=== PATIENT | male | born 1975 | race American Indian/Alaskan Native ===

== ENCOUNTER 2019-03-27 06:22 | Emergency (ER) | payer BC, OTHER ==
[2019-03-27 06:27] VITALS: BP 148/99
[2019-03-27] MEDS ORDERED: LIDOCAINE-MPF (1%) 10 MG/1 ML VIAL 5 ML INFILTRATI ONE (07:26)
--- NOTE | 2019-03-27 07:52 | Emergency Department Report ---
- General Chief complaint: Skin/Abscess/Foreign Body Stated complaint: HAIR BUMP UNDER CHIN/PAIN SWOLLEN Time Seen by Provider: 03/27/19 07:06 Source: patient Mode of arrival: Ambulatory Limitations: No Limitations - History of Present Illness Initial comments: Patient is a 43-year-old male who presents emergency room with complaints of an abscess under the chin that began two weeks ago. pt states it first started as a small ingrown hair that scabbed over but then began to increase in size. he states some days he has seen a small amount of pus drainage. States he does shave his perera. Denies any fever, chills, nausea, vomiting, any other symptoms. pt states he has a past medical history of hypertension. Denies any history of diabetes. Denies any allergies to medications. - Related Data Previous Rx's Medication Instructions Recorded Last Taken Type Amoxicillin [Trimox CAP] 500 mg PO Q8H #30 capsule 02/24/15 Unknown Rx HYDROcodone/APAP 10-325 [[place] 1 each PO Q6HR PRN #12 tablet 02/24/15 Unknown Rx 10/325] Acetaminophen/Codeine [Tylenol 1 tab PO Q6H PRN #5 tab 03/27/19 Unknown Rx /Codeine # 3 tab] Ibuprofen [Motrin 600 MG tab] 600 mg PO Q8H PRN #10 tablet 03/27/19 Unknown Rx Sulfamethoxazole/Trimethoprim 1 each PO BID 7 Days #14 tablet 03/27/19 Unknown Rx [Bactrim DS TAB] Allergies Allergy/AdvReac Type Severity Reaction Status Date / Time squash Allergy Vomiting Verified 02/24/15 04:31 Abscess Boil HPI - HPI Chief Complaint: Skin/Abscess/Foreign Body Stated Complaint: HAIR BUMP UNDER CHIN/PAIN SWOLLEN Time Seen by Provider: 03/27/19 07:06 Home Medications: Previous Rx's Medication Instructions Recorded Last Taken Type Amoxicillin [Trimox CAP] 500 mg PO Q8H #30 capsule 02/24/15 Unknown Rx HYDROcodone/APAP 10-325 [[place] 1 each PO Q6HR PRN #12 tablet 02/24/15 Unknown Rx 10/325] Acetaminophen/Codeine [Tylenol 1 tab PO Q6H PRN #5 tab 03/27/19 Unknown Rx /Codeine # 3 tab] Ibuprofen [Motrin 600 MG tab] 600 mg PO Q8H PRN #10 tablet 03/27/19 Unknown Rx Sulfamethoxazole/Trimethoprim 1 each PO BID 7 Days #14 tablet 03/27/19 Unknown Rx [Bactrim DS TAB] Allergies/Adverse Reactions: Allergies Allergy/AdvReac Type Severity Reaction Status Date / Time squash Allergy Vomiting Verified 02/24/15 04:31 ED Review of Systems ROS: Stated complaint: HAIR BUMP UNDER CHIN/PAIN SWOLLEN Other details as noted in HPI Comment: All other systems reviewed and negative ED Past Medical Hx - Past Medical History Hx Hypertension: Yes - Surgical History Past Surgical History?: No - Social History Smoking Status: Current Every Day Smoker Substance Use Type: Alcohol - Medications Home Medications: Home Medications Medication Instructions Recorded Confirmed Last Taken Type Amoxicillin [Trimox CAP] 500 mg PO Q8H #30 capsule 02/24/15 Unknown Rx HYDROcodone/APAP 10-325 [[place] 1 each PO Q6HR PRN #12 tablet 02/24/15 Unknown Rx 10/325] Acetaminophen/Codeine [Tylenol 1 tab PO Q6H PRN #5 tab 03/27/19 Unknown Rx /Codeine # 3 tab] Ibuprofen [Motrin 600 MG tab] 600 mg PO Q8H PRN #10 tablet 03/27/19 Unknown Rx Sulfamethoxazole/Trimethoprim 1 each PO BID 7 Days #14 tablet 03/27/19 Unknown Rx [Bactrim DS TAB] ED Physical Exam - General Limitations: No Limitations General appearance: alert, in no apparent distress - Head Head exam: Present: atraumatic, normocephalic - Eye Eye exam: Present: normal appearance - ENT ENT exam: Present: mucous membranes moist - Respiratory Respiratory exam: Present: normal lung sounds bilaterally. Absent: respiratory distress, wheezes, rales, rhonchi, stridor, chest wall tenderness, accessory muscle use, decreased breath sounds, prolonged expiratory - Cardiovascular Cardiovascular Exam: Present: regular rate, normal rhythm, normal heart sounds. Absent: systolic murmur, diastolic murmur, rubs, gallop - Neurological Exam Neurological exam: Present: alert, oriented X3 - Psychiatric Psychiatric exam: Present: normal affect, normal mood - Skin Skin exam: Present: warm, dry, other (4 cm area of induration just inferior to the chin, 1 cm area of central fluctuance with scab present) ED Course Vital Signs 03/27/19 06:25 Temperature 98.4 F Pulse Rate 87 Respiratory 18 Rate Blood Pressure 148/99 O2 Sat by Pulse 99 Oximetry - I & D Anterior Neck Type of Procedure: Simple Site: just inferior to the chin Blade Size: 11 I & D Procedure: betadine prep, sterile drapes applied, sterile dressing applied Progress: 4 cm area of induration just inferior to the chin, 1 cm area of central fluctuance with scab present on exam, betadine used for skin prep, sterile chrissie pes applied, 2 cc of 1% lidocaine without epi used as anesthetic, 1 cm incision made with 11 blade, small amount of purulent drainage expressed, probed with blunt hemostat, irrigated with saline, pt tolerated well, no complications, bleeding controlled, sterile dressing applied ED Medical Decision Making - Medical Decision Making Patient is a 43-year-old male who presents emergency room with complaints of an abscess under the chin that began two weeks ago. pt states it first started as a small ingrown hair that scabbed over but then began to increase in size. he states some days he has seen a small amount of pus drainage. States he does shave his perera. Denies any fever, chills, nausea, vomiting, any other symptoms. pt states he has a past medical history of hypertension. Denies any history of diabetes. Denies any allergies to medications. VSS. on exam: 4 cm area of induration just inferior to the chin, 1 cm area of central fluctuance with scab present. I&D performed per procedure note with small amount of purulent drainage. pt given prescription for bactrim and pain medication. advised pt to please keep area clean, dry, covered. May wash with soap and water and immediately dry. No hot tub, pool, soaking in water. Please take medication as prescribed. Do not drive or operate heavy machinery while taking pain medication. please follow-up with your primary care doctor in the next 3 days for reexamination. Return to the emergency room for any new or worsening symptoms or any worsening signs of infection despite antibiotic therapy including worsening swelling, worsening redness, fever, chills, increased drainage. - Differential Diagnosis abscess, folliculitis, cellulitis, carbuncle, furuncle Critical care attestation.: If time is entered above; I have spent that time in minutes in the direct care of this critically ill patient, excluding procedure time. ED Disposition Clinical Impression: Abscess, Encounter for incision and drainage procedure Disposition: DC-01 TO HOME OR SELFCARE Is pt being admited?: No Does the pt Need Aspirin: No Condition: Stable Instructions: Abscess Incision and Drainage (ED) Additional Instructions: Please keep area clean, dry, covered. May wash with soap and water and immediately dry. No hot tub, pool, soaking in water. Please take medication as prescribed. Do not drive or operate heavy machinery while taking pain medication. please follow-up with your primary care doctor in the next 3 days for reexamination. Return to the emergency room for any new or worsening symptoms or any worsening signs of infection despite antibiotic therapy including worsening swelling, worsening redness, fever, chills, increased dr garcia. Prescriptions: Sulfamethoxazole/Trimethoprim [Bactrim DS TAB] 1 each PO BID 7 Days #14 tablet Ibuprofen [Motrin 600 MG tab] 600 mg PO Q8H PRN #10 tablet PRN Reason: Pain, Moderate (4-6) Acetaminophen/Codeine [Tylenol /Codeine # 3 tab] 1 tab PO Q6H PRN #5 tab PRN Reason: Pain , Severe (7-10) Referrals: ROBERT GODFREY MD [Primary Care Provider] - 3-5 Days Time of Disposition: 07:53 Print Language: PASHTO
== END 2019-03-27 08:18 | disposition home or self-care (01) ==
LOC: ED 06:22
DX: L02.01 Cutaneous abscess of face (principal)
CPT/HCPCS: 99281

== ENCOUNTER 2020-09-01 05:22 | Emergency (ER) | payer OTHER ==
[2020-09-01 06:08] VITALS: BP 147/100
--- NOTE | 2020-09-01 07:42 | Emergency Department Report ---
ED Eye Problem HPI - General Chief complaint: Eye Problems Stated complaint: LT EYE PAIN Time Seen by Provider: 09/01/20 07:27 Source: patient Mode of arrival: Ambulatory Limitations: No Limitations - History of Present Illness Initial comments: Patient is a 45-year-old -[place] male that comes to the emergency room after waking up with his eye matted shut and conjunctival redness. It is his left eye. His right eye is normal. He is around no children. He denies any trauma. He denies getting anything in his eyes. His vision is normal. His EOMs are intact. He is playing on his phone as provider enters room. There is no discharge on exam the eye is not tearing. There is mild conjunctival redness. Globe is intact Patient's blood pressure was noted to be mildly elevated in triage. Patient does have a history of hypertension. He denies any chest pain shortness of breath headache or other complaints. MD chief complaint: eye redness -: Sudden, hour(s) Onset Description: sudden Location: left eye Place: home If Injury: none Eye Symptoms: redness, discharge Severity: mild Consistency: intermittent Associated Symptoms: none Treatments Prior to Arrival: none - Related Data Patient Tetanus UTD: Yes Previous Rx's Medication Instructions Recorded Last Taken Type Amoxicillin [Trimox CAP] 500 mg PO Q8H #30 capsule 02/24/15 Unknown Rx HYDROcodone/APAP 10-325 [[place] 1 each PO Q6HR PRN #12 tablet 02/24/15 Unknown Rx 10/325] Acetaminophen/Codeine [Tylenol 1 tab PO Q6H PRN #5 tab 03/27/19 Unknown Rx /Codeine # 3 tab] Ibuprofen [Motrin 600 MG tab] 600 mg PO Q8H PRN #10 tablet 03/27/19 Unknown Rx Sulfamethoxazole/Trimethoprim 1 each PO BID 7 Days #14 tablet 03/27/19 Unknown Rx [Bactrim DS TAB] Polymyxin B Sulf/Trimethoprim 2 drop OS Q4H #1 bottle 09/01/20 Unknown Rx [Polytrim Eye Drops] Allergies Allergy/AdvReac Type Severity Reaction Status Date / Time squash Allergy Vomiting Verified 02/24/15 04:31 ED Review of Systems ROS: Stated complaint: LT EYE PAIN Other details as noted in HPI Comment: All other systems reviewed and negative ED Past Medical Hx - Past Medical History Previous Medical History?: Yes Hx Hypertension: Yes Additional medical history: "heart probs". - Surgical History Past Surgical History?: No - Family History Family history: no significant - Social History Smoking Status: Current Every Day Smoker Substance Use Type: Alcohol - Medications Home Medications: Home Medications Medication Instructions Recorded Confirmed Last Taken Type Amoxicillin [Trimox CAP] 500 mg PO Q8H #30 capsule 02/24/15 Unknown Rx HYDROcodone/APAP 10-325 [[place] 1 each PO Q6HR PRN #12 tablet 02/24/15 Unknown Rx 10/325] Acetaminophen/Codeine [Tylenol 1 tab PO Q6H PRN #5 tab 03/27/19 Unknown Rx /Codeine # 3 tab] Ibuprofen [Motrin 600 MG tab] 600 mg PO Q8H PRN #10 tablet 03/27/19 Unknown Rx Sulfamethoxazole/Trimethoprim 1 each PO BID 7 Days #14 tablet 03/27/19 Unknown Rx [Bactrim DS TAB] Polymyxin B Sulf/Trimethoprim 2 drop OS Q4H #1 bottle 09/01/20 Unknown Rx [Polytrim Eye Drops] ED Physical Exam - General Limitations: No Limitations General appearance: alert, in no apparent distress - Head Head exam: Present: atraumatic, normocephalic - Eye Eye exam: Present: normal appearance, PERRL, EOMI, other (Conjunctival redness of the left eye). Absent: scleral icterus, conjunctival injection, nystagmus, periorbital swelling, periorbital tenderness - ENT ENT exam: Present: mucous membranes moist - Neck Neck exam: Present: normal inspection - Respiratory Respiratory exam: Present: normal lung sounds bilaterally. Absent: respiratory distress - Cardiovascular Cardiovascular Exam: Present: regular rate, normal rhythm. Absent: systolic murmur, diastolic murmur, rubs, gallop - GI/Abdominal GI/Abdominal exam: Present: soft, normal bowel sounds - Rectal Rectal exam: Present: deferred - Extremities Exam Extremities exam: Present: normal inspection - Back Exam Back exam: Present: normal inspection - Neurological Exam Neurological exam: Present: alert, oriented X3 - Psychiatric Psychiatric exam: Present: normal affect, normal mood - Skin Skin exam: Present: warm, dry, intact, normal color. Absent: rash ED Course Vital Signs 09/01/20 05:38 Temperature 97.8 F Pulse Rate 92 H Respiratory 16 Rate Blood Pressure 147/100 O2 Sat by Pulse 99 Oximetry ED Medical Decision Making - Medical Decision Making Patient educated on care and management of conjunctivitis. I have educated him about washing his hands. I have informed him that this can be contagious to his other eye or other people. I discussed the patient's blood pressure with him. He states that he knows that he has high blood pressure and he monitors it but it has not been high. He thinks is just because his eye is bothering him. Patient has no chest pain shortness of breath or headache. Patient will continue to monitor. Patient being discharged home with discharge plan of care including monitoring blood pressure and follow-up with primary care. He verbalizes understanding. Vital Signs 09/01/20 05:38 Temperature 97.8 F Pulse Rate 92 H Respiratory 16 Rate Blood Pressure 147/100 O2 Sat by Pulse 99 Oximetry Patient requesting a work note on discharge - Differential Diagnosis Conjunctivitis: Allergic, bacterial or viral Critical care attestation.: If time is entered above; I have spent that time in minutes in the direct care of this critically ill patient, excluding procedure time. ED Disposition Clinical Impression: Conjunctivitis, Chronic hypertension Disposition: - TO HOME OR SELFCARE Is pt being admited?: No Does the pt Need Aspirin: No Condition: Stable Instructions: How to Use Eye Drops and Eye Ointments, Hypertension (ED) Additional Instructions: MED ORDERED TODAY FOLLOW UP WITH PCP REFERRAL BELOW MONITOR YOUR BLOOD PRESSURE FOLLOW UP WITH EYE DOCTOR IF EYE IS NOT BETTER BY SUNDAY REFERRAL BELOW WARM COMPRESSES TO EYE Prescriptions: Polymyxin B Sulf/Trimethoprim [Polytrim Eye Drops] 2 drop OS Q4H #1 bottle Referrals: MARILEE PULIDO MD [Staff Physician] - 3-5 Days KEVIN OSORIO MD [Staff Physician] - 3-5 Days Forms: Work/School Release Form(ED) Time of Disposition: 07:40
== END 2020-09-01 07:51 | disposition home or self-care (01) ==
LOC: ED 05:22
DX: H10.89 Other conjunctivitis (principal); I10 Essential (primary) hypertension; G89.29 Other chronic pain; F17.200 Nicotine dependence, unspecified, uncomplicated; Z79.899 Other long term (current) drug therapy; Z88.8 Allergy status to other drugs, medicaments and biological substances
CPT/HCPCS: 99282